=== PATIENT | female | born 1980 | race African-American/Black ===

== ENCOUNTER → 2016-08-07 04:10 | Emergency (ER) | payer OTHER ==
[~2016-08-07 04:10] MED LIST: DOXYCYCLINE HY100 M3 PO; FLONASE 0.05% N16 G1; IBUPROFEN PO; MOBIC15 MG PO; NO MEDICATIONS; PREDNISONE PO; PYRIDIUM PO; RYNEX DM LIQUI473 ML PO; TYLENOL #3 PO; ULTRAM PO
== END | disposition home or self-care (01) ==
LOC: SED 04:10
DX: J06.9 Acute upper respiratory infection, unspecified (principal); K21.9 Gastro-esophageal reflux disease without esophagitis; Z88.5 Allergy status to narcotic agent; Z91.040 Latex allergy status
CPT/HCPCS: 99282

== ENCOUNTER 2016-08-09 23:59 | Emergency (ER) | payer OTHER ==
[2016-08-10 02:48] LABS: INFLUENZA A NEG (NEG); INFLUENZA B NEG (NEG)
== END 2016-08-10 04:52 | disposition home or self-care (01) ==
LOC: CED 23:59
PROVIDERS: Student in an Organized Health Care Education/Training Program
DX: J03.90 Acute tonsillitis, unspecified (principal); J04.0 Acute laryngitis; K21.9 Gastro-esophageal reflux disease without esophagitis; Z88.5 Allergy status to narcotic agent; Z91.040 Latex allergy status
CPT/HCPCS: 87651; 87804; 99283